=== PATIENT | male | born 1950 | race Caucasian/White ===

== ENCOUNTER 2023-12-24 11:16 | Outpatient (CLI) | payer MEDICARE | END 2023-12-24 11:17 | disposition home or self-care (01) | LOC: CSHULT 11:16 | PROVIDERS: ATTEND Student in an Organized Health Care Education/Training Program | DX: R94.6 Abnormal results of thyroid function studies (principal); R41.3 Other amnesia; E04.1 Nontoxic single thyroid nodule | CPT/HCPCS: 76536 ==

== ENCOUNTER 2024-10-12 10:59 | Emergency (ER) | payer MEDICARE ==
[2024-10-12] MEDS ORDERED: cefTRIAXone (ROCEPHIN) 1 GM VIAL ONE (12:24)
[2024-10-12] MEDS ORDERED: Boostrix 0.5 ML (Tdap) VIAL (>/=7 yrs of age) ONE (12:25)
[2024-10-12] MEDS ORDERED: Rabies Vaccine Human 2.5 UNITS VIAL IM ONE (12:45)
[2024-10-12] MEDS ORDERED: Rabies Immune Globulin/PF 300 UNITS/ML VIAL IM SCH (12:45)
[2024-10-12] MEDS ORDERED: Ibuprofen 200 MG TAB ONE (13:57)
== END 2024-10-12 14:33 | disposition home or self-care (01) ==
LOC: CSHERS 10:59
DX: L02.511 Cutaneous abscess of right hand (principal); L03.011 Cellulitis of right finger; E11.9 Type 2 diabetes mellitus without complications; I10 Essential (primary) hypertension; W55.01XA Bitten by cat, initial encounter; Z95.1 Presence of aortocoronary bypass graft
CPT/HCPCS: 90375; 90675; J0696; 90471; 90715; 96372